=== PATIENT | male | born 1985 | race Caucasian/White ===

== ENCOUNTER → 2023-08-29 17:25 | Outpatient (REF) | payer OTHER, SELFPAY | LOC: OLAB 17:25 | PROVIDERS: ATTENDING PHYSICIAN Otolaryngology | DX: H66.3X1 Other chronic suppurative otitis media, right ear (principal) | CPT/HCPCS: 87070; 87147 ==

== ENCOUNTER → 2024-01-31 12:31 | Outpatient (REF) | payer OTHER, SELFPAY | LOC: HWRAD 12:31 | PROVIDERS: FAMILY PHYSICIAN Family Medicine | DX: R10.9 Unspecified abdominal pain (principal); R22.9 Localized swelling, mass and lump, unspecified | CPT/HCPCS: 76700 ==

== ENCOUNTER → 2024-07-22 12:30 | Outpatient (REF) | payer OTHER, SELFPAY | LOC: CLAB 12:30 | PROVIDERS: ATTENDING PHYSICIAN Physician Assistant | DX: H66.3X1 Other chronic suppurative otitis media, right ear (principal) | CPT/HCPCS: 87070; 87147; 87186 ==